=== PATIENT | female | born 1965 | race African-American/Black ===

== ENCOUNTER 2018-03-29 11:32 | Emergency (ER) | payer OTHER ==
[2018-03-29] MEDS ORDERED: Ondansetron ODT 4 MG TAB ONE (12:02)
[2018-03-29] MEDS ORDERED: Ketorolac Tromethamine 30 MG/ML VIAL ONE (12:05)
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
== END 2018-03-29 13:32 | disposition home or self-care (01) ==
LOC: NAV ERS 11:32
DX: S16.1XXA Strain of muscle, fascia and tendon at neck level, initial encounter (principal); S43.401A Unspecified sprain of right shoulder joint, initial encounter; M62.838 Other muscle spasm; I10 Essential (primary) hypertension; E11.9 Type 2 diabetes mellitus without complications; E78.5 Hyperlipidemia, unspecified; Z79.899 Other long term (current) drug therapy; V44.5XXA Car driver injured in collision with heavy transport vehicle or bus in traffic accident, initial encounter
CPT/HCPCS: 96372; J1885; Q0162